=== PATIENT | male | born 1945 | race Caucasian/White ===

== ENCOUNTER → 2025-03-19 15:11 | Outpatient (BNVA) | payer MEDICARE, BC, SELFPAY | PROVIDERS: Family Provider Family Medicine; PCP Family Medicine; Visit Provider Family Medicine | DX: Z76.89 Persons encountering health services in other specified circumstances (principal); N18.31 Chronic kidney disease, stage 3a; K50.90 Crohn's disease, unspecified, without complications; E55.9 Vitamin D deficiency, unspecified; E53.8 Deficiency of other specified B group vitamins; I25.10 Atherosclerotic heart disease of native coronary artery without angina pectoris | CPT/HCPCS: 80053; 82306; 82607; 85025 ==